=== PATIENT | female | born 1940 | race Two or more races ===

== ENCOUNTER 2024-03-31 12:25 | Emergency (ER) | payer MEDICARE, MEDICAID, SELFPAY ==
[2024-03-31 12:26] VITALS: BMI 31.2
--- NOTE | 2024-03-31 13:23 | XR_ITS ---
Examination: Forearm, left, 2 views. Technique: Forearm, AP, lateral 2 views Date and time of exam: March 31, 2024 1351 hrs. Indications: Redness swelling and pain involving the forearm today. Findings: Soft tissue swelling about the elbow and forearm Severe osteopenia No elbow effusion No opaque foreign body Soft tissue vascular calcification No angel luis cortical bone destruction Impression: No angel luis cortical bone destruction No opaque foreign body
--- NOTE | 2024-03-31 13:23 | XR_ITS ---
Examination: Duplex scan of the upper extremity, unilateral left complete Date and time of exam: March 31, 2024 1455 hrs. Indications: Left arm swelling beginning 3 days ago, diagnoses diabetes, hypertension Technique: Duplex scan of the upper left extremity veins using B-mode/grayscale imaging and Doppler spectral analysis and color flow Attention is directed to internal echogenicity, compression and augmentation involving these veins, color flow assessment, spectral analysis Findings: Major deep venous structures in the extremity demonstrate normal course and caliber. There is no evidence of deep vein thrombosis. Normal color flow and spectral analysis Impression: Negative for DVT..
--- NOTE | 2024-03-31 13:25 | EDRME_ITS ---
Rapid Medical Screening Exam RME Arrival date/time: 03/31/24 12:25 This is a 83-year-old female presents to the emergency department with complaints of left arm swelling warm to touch. Possible cellulitis. Reports fever last night. I have greeted and performed a focused initial assessment of this patient. In itial appropriate labs ordered at this time. A comprehensive ED assessment and evaluation of the patient and analysis of all test and completion of medical decision making process will be conducted by additional ED provider. Chief Complaint: Extremity Problem,Nontraumatic Time Seen by Provider: 03/31/24 13:04
[2024-03-31 13:27] VITALS: BP 126/71; PULSE 72; RESP 18; TEMP 36.6; O2SAT 94
[2024-03-31 14:43] LABS: Basophils # (Auto) 0.1 Thou/mm3 (0.0-0.2); Basophils % (Auto) 0 % (0-2.5); Eosinophils # (Auto) 0.1 Thou/mm3 (0.0-0.5); Eosinophils % (Auto) 1 % (0-10); Hematocrit 33.4 % (36.0-46.0); Hemoglobin 10.8 g/dL (12.0-16.0); Immature Granulocytes % (Auto) 1 % (0-0); Lymphocytes # (Auto) 0.8 Thou/mm3 (1.0-4.8); Lymphocytes % (Auto) 3 % (10-50); Mean Corpuscular HGB Conc 32.3 g/dl (31.0-37.0); Mean Corpuscular Hemoglobin 26.9 pg (25.0-35.0); Mean Corpuscular Volume 83 fL (80-100); Monocytes % (Auto) 5 % (0-12); Neutrophils # (Auto) 20.3 Thou/mm3 (1.8-7.7); Neutrophils % (Auto) 90 % (37-80); Nucleated Red Blood Cell % 0 /100 WBC (0); Platelet Count 241 Thou/mm3 (140-440); Red Blood Count 4.01 Miln/mm3 (4.00-5.20); White Blood Count 22.5 Thou/mm3 (3.6-11.0)
[2024-03-31 14:58] LABS: Sed Rate (ESR) 79 mm/hr (0-30)
[2024-03-31 15:05] LABS: Prothrombin Time 10.7 Seconds (9.0-12.2)
[2024-03-31 15:23] LABS: Alanine Aminotransferase 9 U/L (10-49); Albumin/Globulin Ratio 1.5 (1.2-2.2); Alkaline Phosphatase 113 U/L (46-116); Anion Gap 11 (7-16); Aspartate Amino Transferase < 8 U/L (0-34); BUN/Creatinine Ratio 43 Ratio (12-20); Bilirubin,Total 0.2 mg/dL (0.3-1.2); Blood Urea Nitrogen 30 mg/dL (9-23); C-Reactive Protein 28.5 mg/dL (0.0-0.9); Calcium 9.5 mg/dL (8.3-10.6); Calcium (Corrected) 9.5 mg/dL (8.5-10.1); Carbon Dioxide 20.1 mMol/L (20.0-31.0); Chloride 105 mMol/L (98-107); Creatinine (Component) 0.7 mg/dL (0.6-1.3); Estimated Creatinine Clearance 53.2 mL/min (>60); Globulin 2.6 gm/dL (2.3-3.5); Glucose 300 mg/dL (74-106); Osmolality,Calculated 289 (275-295); Potassium 3.9 mMol/L (3.4-5.1); Procalcitonin 0.74 ng/ml (0.0-0.49); Sodium 136 mMol/L (136-145); Total Protein 6.6 gm/dL (5.7-8.2); eGFR > 60 See Note
[2024-03-31 17:25] VITALS: BP 135/68; PULSE 70; RESP 18; TEMP 36.6; O2SAT 93
--- NOTE | 2024-03-31 17:29 | EDNOTE_ITS ---
ED Extremity Problem RME/HPI General Chief complaint: Extremity Problem,Nontraumatic Stated complaint: LEFT ELBOW PAIN/SWELLING REDNESS AND HEADACHE Time Seen by Provider: 03/31/24 13:04 Arrival date/time: 03/31/24 12:25 RME / HPI RME / HPI Narrative: 83-year-old female patient came in for evaluation regarding left upper extremity redness and swelling, onset of symptoms for the last few days as worsening redness and swelling, severity moderate. Denies any fever. Denies any fall or trauma denies any other complaints. No medication was taken prior to arrival. Related Data Home Medications ?Medication ?Instructions ?Recorded ?Confirmed atorvastatin 20 mg tablet 20 mg PO QDAY 07/30/18 04/19/23 carvedilol 6.25 mg tablet (Coreg) 12.5 mg PO BID 07/30/18 04/19/23 glyburide 5 mg tablet 5 mg PO BID 01/13/19 04/19/23 metformin 500 mg tablet 500 mg PO BID 01/13/19 04/19/23 potassium chloride 8 mEq 8 meq PO QDAY 01/13/19 04/19/23 tablet,extended release sacubitril 24 mg-valsartan 26 mg 1 tab PO BID 01/13/19 04/19/23 tablet (Entresto) spironolactone 25 mg tablet 25 mg PO QDAY 01/13/19 04/19/23 celecoxib 200 mg capsule 200 mg PO BID 01/14/19 04/19/23 aspirin 81 mg tablet,delayed 81 mg PO QDAY 04/19/23 04/19/23 release empagliflozin 10 mg tablet 10 mg PO QDAY 04/19/23 04/19/23 (Jardiance) Previous Rx's ?Medication ?Instructions ?Recorded nystatin 100,000 unit/gram topical 1 applic topical BID #60 grams 07/17/22 cream naproxen 500 mg tablet,delayed 500 mg PO BID PRN pain #20 tabs 08/06/23 release (EC-Naprosyn) doxycycline monohydrate 100 mg 100 mg PO BID #14 tabs 03/31/24 tablet Allergies Allergy/AdvReac Type Severity Reaction Status Date / Time morphine Allergy Severe Swelling Verified 03/31/24 12:28 Review of Systems Review of Systems Narrative Review of Systems: Review of system reviewed and within normal limits except mentioned in HPI ED Exam Narrative Physical exam: VITAL SIGNS: Reviewed. GENERAL APPEARANCE: Alert and interactive, follows commands, no acute distress, HEAD AND FACE: Non-traumatic. ENT: PERRL, pink conjunctivitis, eyelid no trauma, Mucous membrane moist. NECK: Supple, nontender, no nuchal rigidity. CHEST: No tenderness, no crepitus, no paradoxical movement, no retractions. LUNGS: Clear, well ventilated, symmetric, no rales, no wheezing, no ronchi, no stridor, good breath sounds bilaterally. HEART: Regular rate, regular rhythm, no murmur, no gallops. ABDOMEN: Soft, positive bowel sounds, nondistended, no guarding, nontender, no rebound, no masses, RECTAL: Deferred. GENITAL: Deferred. NEUROLOGICAL: Gross motor function intact sensory function intact, Appropriate for age. MUSCULOSKELETAL: low back nontender, full range of motion. EXTREMITIES: Redness noted on the upper extremity starting from the mid arm and ending at the mid forearm, elbow is nonswollen, full range of motion of the elbow, nonfluctuant no skin breakdown SKIN: Color pink, dry, no rash, no lacerations, no abrasions, no contusions. LYMPHATICS: Deferred. Course Quality Measures none Orders Category Date Time Status US venous doppler UE LT Stat Exams 03/31/24 13:23 Completed XR forearm LT 2V Stat Exams 03/31/24 13:23 Completed Blood Culture (Lab) Stat Lab 03/31/24 14:25 Received CBC Stat Lab 03/31/24 14:25 Completed CMP [Comprehensive Metabolic Panel] Stat Lab 03/31/24 14:25 Completed CRP [C-Reactive Protein] Stat Lab 03/31/24 14:25 Completed Lactate (Lactic Acid) Stat Lab 03/31/24 14:25 Results Procalcitonin Stat Lab 03/31/24 14:25 Completed Prothrombin Time with INR Stat Lab 03/31/24 14:25 Completed Sed Rate (ESR) Stat Lab 03/31/24 14:25 Completed Doxycycline [Vibramycin] Med 03/31/24 17:26 Discontinued 100 mg PO X1 ONE cefTRIAXone [Rocephin] 1,000 mg Med 03/31/24 17:26 Discontinued Lidocaine 1% 20 ml [Xylocaine 1% 20 ML] 2.1 ml IM X1 Vital Signs Vital signs: Vital Signs Temperature 98 F 03/31/24 13:27 Pulse Rate 72 03/31/24 13:27 Respiratory Rate 18 03/31/24 13:27 Blood Pressure 126/71 03/31/24 13:27 Pulse Oximetry (%) 94 L 03/31/24 13:27 Oxygen Delivery Method Room Air 03/31/24 13:27 Extremity Problem [facility] Narrative [facility] Narrative:: 83-year-old female patient came in for evaluation regarding left upper extremity redness and swelling, onset of symptoms for the last few days as worsening redness and swelling, severity moderate. Denies any fever. Denies any fall or trauma denies any other complaints. No medication was taken prior to arrival. Patient's workup is significant for WBC count of 22.5 ESR 79, normal lactate of 3.0. Patient ultrasound of the arm came back unremarkable. X-ray also came back unremarkable. Patient received ceftriaxone IM. Was planning to give IV fluids however patient and family wanting to go home and cannot wait. Patient was advised to return to the emergency room right away for fever, worsening of symptoms. Patient will be sent home on doxycycline p.o. Planning to repeat the lactic acid also. Patient data External records reviewed:: None Clinical information provided by:: patient Social determinants that could affect healthcare access:: none Patient has the following chronic illnesses:: diabetes mellitus How is presenting disease/condition affected by chronic disease/condition?: uneffected by Evaluation data The following diagnostics were reviewed and interpreted by me:: lab results and radiology exam(s) Lab and/or radiology exams considered but not ordered:: None Interpretation Summary: See results in MDM Medications / Prescriptions Medications or Prescriptions considered but not ordered:: Ceftriaxone IM and doxycycline p.o. Medication administrations:: Medication Administration History Discontinued Medications Ceftriaxone Sodium 1,000 mg/ (Lidocaine HCl 2.1 ml) 0 mg IM X1 ONE Stop: 03/31/24 17:27 Doxycycline Hyclate (Doxycycline 100 Mg Tablet) 100 mg PO X1 ONE Stop: 03/31/24 17:27 Ceftriaxone IM and doxycycline p.o. Consultations Consultation(s) initiated? (list below): No Consultation #2 (Physician, Specialty, Details): None Diagnosis Extremity Problem Differential Diagnosis: cellulitis, superficial thrombophlebitis and deep venous thrombosis of upper extremity Most likely diagnosis given after review of the tests above:: Left upper extremity cellulitis Admission Indicated Admission indicated?: not indicated Explain why admission is indicated or not indicated:: Stable Admission Request Was there a request for admission?: No Disposition Plan Disposition Plan: Discharge Discharge Attestation Discharge Attestation: The patient and all family members were given an opportunity to ask questions and understood the discharge instructions. Discharge instructions specifically effects, indications for sooner follow up or return to the emergency department, and the expected course of current diagnosis. Patient condition: Stable Discharge Plan Plan Patient Disposition: HOME (Self Care) Disposition Comment: stable Prescriptions/Referrals Prescriptions/Med Rec: New doxycycline monohydrate 100 mg tablet 100 mg PO BID Qty: 14 0RF No Action metformin 500 mg Tablet 500 mg PO BID spironolactone 25 mg Tablet 25 mg PO QDAY potassium chloride 8 mEq Tablet Extended Release 8 meq PO QDAY Entresto 24-26 mg Tablet 1 tab PO BID glyburide 5 mg Tablet 5 mg PO BID celecoxib 200 mg capsule 200 mg PO BID Hold Instructions: Resume on 04/20/23. Patient Comments: YONIS CARDENAS C?LENKA BOX D? carvedilol [Coreg] 6.25 mg Tablet 12.5 mg PO BID atorvastatin 20 mg Tablet 20 mg PO QDAY nystatin 100,000 unit/gram cream 1 applic topical BID Qty: 60 0RF Rx Instructions: apply to external genitalia as directed aspirin 81 mg tablet,delayed release (DR/EC) 81 mg PO QDAY Jardiance 10 mg tablet 10 mg PO QDAY Patient Comments: TAKE 1 TABLET BY MOUTH EVERY DAY IN THE MORNING STOP 25 MG naproxen [EC-Naprosyn] 500 mg tablet,delayed release (DR/EC) 500 mg PO BID PRN (Reason: pain) Qty: 20 0RF Referrals: No Primary/Family,Physician [Primary Care Provider] - In 1 week Problem List Clinical Impression: Cellulitis Patient/Caregiver Discharge Instructions Discharge Activity: activity as tolerated Education Materials: ED Cellulitis Additional Instructions: Thank you for the opportunity for serving you today. You are stable for discharged . You are advised to: Follow-up with your PCP in 1 to 2 days Return to ED for worsening of symptoms, fever, worsening redness and swelling Increase oral fluids Take medication as prescribed Print Language: Japanese Stand Alone Forms: Linh Award Info., Patient Portal Info Letter MELVIN/TERESA Supervising Physician MELVIN/TERESA Supervising Physician: MD Latanya
[2024-03-31 17:35] LABS: Reflex Lactate? Y
[2024-03-31 18:02] LABS: Lactic Acid, 3 HR 2.2 mMol/L (0.4-2.0)
[2024-03-31] MEDS: DOXYCYCLINE 100 MG TABLET PO (19:48)
[2024-03-31] MEDS: cefTRIAXone 1,000 MG, LIDOCAINE 1% 20 ML 2.1 ML IM (19:48)
== END 2024-03-31 20:00 | disposition home or self-care (01) ==
PROVIDERS: Nurse Practitioner Primary Care; Emergency Provider Emergency Medicine
DX: L03.114 Cellulitis of left upper limb (principal)
CPT/HCPCS: 36415; 73090; 80053; 83605; 84145; 85025; 85610; 85652; 86140; 87040; 93971; 96372; 99284; J0696; J3490; A9270